=== PATIENT | female | born 1985 | race Two or more races ===

== ENCOUNTER 2022-09-10 21:55 | Emergency (ER) | payer OTHER ==
[~2022-09-10] VITALS: Ht 162.6 cm; Wt 130.2 kg
[2022-09-10] MEDS ORDERED: GLUMETZA500 MG PO (22:07)
[2022-09-10] MEDS ORDERED: ABILIFY5 MG PO (22:09)
[2022-09-10] MEDS ORDERED: LITHOBID300 MG (22:09)
[2022-09-10] MEDS ORDERED: TRAZODONE HCL150 MG PO (22:09)
[2022-09-10] MEDS ORDERED: AMBIEN5 MG PO (22:10)
[2022-09-10] MEDS ORDERED: SYNTHROID137 MCG PO (22:10)
== END 2022-09-10 23:23 | disposition home or self-care (01) ==
LOC: ER 21:55
DX: B02.8 Zoster with other complications (principal)

== ENCOUNTER → 2025-02-07 | Emergency (ER) | payer OTHER ==
[~2025-02-07] VITALS: Ht 162.6 cm; Wt 107.5 kg
[~2025-02-07] MED LIST: ABILIFY10 MG PO; ABILIFY5 MG PO; AMBIEN5 MG PO; AZOR 10-20 MG1 EACH; GLUMETZA500 MG PO; LITHIUM CARBON300 M2 PO; LITHOBID300 MG; NITROFURANTOIN MACROCRYSTAL 100 MG CAPSULE PO ONE; SYNTHROID137 MCG PO; TRAZODONE HCL150 MG PO; VYVANSE70 MG PO
[2025-02-07 16:06] VITALS: BP 109/75; O2SAT 96
== END | disposition left against medical advice (07) ==
LOC: ER 13:09
DX: R30.0 Dysuria (principal); E11.9 Type 2 diabetes mellitus without complications; Z79.84 Long term (current) use of oral hypoglycemic drugs; I10 Essential (primary) hypertension; E03.9 Hypothyroidism, unspecified